=== PATIENT | female | born 2000 | race Caucasian/White ===

== ENCOUNTER 2018-12-10 22:24 | Emergency (ER) | payer OTHER ==
[~2018-12-10] VITALS: Ht 162.6 cm; Wt 54.5 kg
[2018-12-10 22:34] VITALS: BP 126/67; PULSE 95; TEMP 99.5
[2018-12-10] MEDS ORDERED: BIRTH CONTROL (22:55)
[2018-12-10 23:18] LABS: BASO % 0.3 % (0.0-2.0); EOS % 0.4 % (0-4.0); GRAN % 74.3 % (42.2-75.2); HEMOGLOBIN 11.8 g/dl (12.0-15.0); LYMPH # 1.2 (1.2-3.4); MEAN CELL VOLUME 84 fl (80.0-95.0); MEAN CORPUSCULAR HEMOGLOBIN 27 pg (26.0-32.0); MEAN CORPUSCULAR HGB CONC 33 g/dl (33.0-37.0); MEAN PLATELET VOLUME 9.6 fl (7.4-10.4); MONO # 0.5 (0.1-0.6); MONO % 6.7 % (1.7-9.3); PLATELET COUNT 250 K/mm3 (130-400); RED BLOOD COUNT 4.31 M/mm3 (4.10-5.30); REDCELL DISTRIBUTION WIDTH-CV 12.8 % (11.5-14.5)
[2018-12-10 23:21] LABS: HEMATOCRIT 36.2 % (35.0-45.0)
[2018-12-10 23:27] LABS: ALBUMIN 3.9 gm/dL (3.5-5.0); BILIRUBIN,TOTAL 0.6 mg/dL (0.0-1.0); C-REACTIVE PROTEIN 0.9 mg/dL (0.0-0.9); CALCIUM 8.9 mg/dL (8.4-10.2); CREATININE, serum 0.81 (0.52-1.25); TOTAL PROTEIN 7.3 gm/dL (6.4-8.2)
[2018-12-10 23:29] LABS: COLLECTION METHOD CLEAN CATCH
[2018-12-10 23:37] LABS: MUCOUS Present /lpf; PH 7 (5-8); URINE APPEARANCE Clear; URINE BACTERIA None Seen /hpf; URINE BILIRUBIN Negative (NEGATIVE); URINE BLOOD Negative (NEGATIVE); URINE COLOR Yellow; URINE GLUCOSE Negative (NEGATIVE); URINE KETONE Trace (NEGATIVE); URINE LEUKOCYTE ESTERASE Trace (NEGATIVE); URINE NITRATE Negative (NEGATIVE); URINE PROTEIN(semi-quant) 1+ (NEGATIVE); URINE UROBILINOGEN Negative (NEGATIVE)
[2018-12-10] MEDS ORDERED: ZOFRAN 4MG T4 MG/TAB PO (23:48)
== END 2018-12-11 00:40 | disposition home or self-care (01) ==
LOC: COL.ER 22:24
PROVIDERS: Emergency Medicine
DX: R10.0 Acute abdomen (principal); R11.10 Vomiting, unspecified; R19.7 Diarrhea, unspecified; Z88.1 Allergy status to other antibiotic agents
CPT/HCPCS: J1885; J2405; J7030